=== PATIENT | male | born 1965 | race African-American/Black ===

== ENCOUNTER 2023-12-22 12:47 | Emergency (ER) | payer OTHER, SELFPAY ==
[2023-12-22 13:02] VITALS: BP 137/65; PULSE 71; RESP 16; TEMP 37; O2SAT 100
--- NOTE | 2023-12-22 13:10 | ED.UPPEXIN ---
HPI - Extremity Injury (Upper) General Chief Complaint: Extremity Injury, Upper Stated Complaint: Left Shoulder Pain Source: patient, RN notes reviewed and old records reviewed Mode of arrival: ambulatory Limitations: no limitations Related Data Home Medications Medication Instructions Recorded Confirmed amlodipine 10 mg tablet mg 12/22/23 atorvastatin 40 mg tablet mg 12/22/23 empagliflozin 10 mg tablet mg 12/22/23 (Jardiance) hydrocodone 7.5 mg-acetaminophen tablet 12/22/23 325 mg tablet ibuprofen 600 mg tablet mg 12/22/23 insulin glargine 100 unit/mL (3 unit subcut 12/22/23 mL) subcutaneous pen (Basaglar KwikPen U-100 Insulin) losartan 50 mg tablet mg 12/22/23 metformin 500 mg tablet,extended mg PO 12/22/23 release 24 hr methocarbamol 750 mg tablet mg 12/22/23 omeprazole 40 mg capsule,delayed mg 12/22/23 release potassium chloride 10 mEq meq PO 12/22/23 tablet,extended release sildenafil 100 mg tablet (Viagra) mg 12/22/23 sitagliptin phosphate 100 mg mg 12/22/23 tablet (Januvia) tamsulosin 0.4 mg capsule mg PO 12/22/23 Allergies Allergy/AdvReac Type Severity Reaction Status Date / Time No Known Allergies Allergy Verified 12/22/23 13:00 Review of Systems Review of Systems: All systems reviewed & are unremarkable except as noted in HPI and below Constitutional: Constitutional: Reports no additional constitutional complaints ENT: Reports system reviewed and no additional complaints, except as documented Cardiovascular: Cardiovascular: Reports no additional cardiovascular complaints Respiratory: Respiratory: Reports no additional respiratory complaints Gastrointestinal: Gastrointestinal: Reports no additional gastrointestinal complaints [facility] Comments At the time of my signature, I reviewed and agree with the nursing past medical, surgical, social, and family history. There is no relevant family history pertinent to the patient complaint. Exam Const: General: cooperative, no acute distress, alert and awake Orientation/consciousness: oriented to person, oriented to place and oriented to time HENMT: Head: normal to inspection Resp: Effort & Inspection: normal respiratory effort and able to speak in complete sentences Auscultation: clear to auscultation bilaterally, no crackles, no rales, no rhonchi and no wheezes Cardio: Palpation: normal PMI Rate: regular rate Rhythm: regular rhythm Heart sounds: S1 normal heart sound present and S2 normal heart sound present Neuro: General: oriented to person, oriented to place and oriented to time Cranial nerves: Yes CN's II-XII intact bilaterally Psych: Appearance: grossly normal Thought process: Normal thought process present Insight: Good insight present (Psych) Judgement: Good judgement present (Psych) Course Course Level of Care: Express Care Visit Vital Signs Vital signs: Reviewed Discharge Plan Discharge Prescriptions: No Action losartan 50 mg tablet atorvastatin 40 mg tablet potassium chloride 10 mEq tablet extended release PO omeprazole 40 mg capsule,delayed release(DR/EC) sildenafil [Viagra] 100 mg tablet methocarbamol 750 mg tablet tamsulosin 0.4 mg capsule PO amlodipine 10 mg tablet hydrocodone-acetaminophen 7.5-325 mg tablet ibuprofen 600 mg tablet metformin 500 mg tablet extended release 24 hr PO Januvia 100 mg tablet insulin glargine [Basaglar KwikPen U-100 Insulin] 100 unit/mL (3 mL) insulin pen SUBCUT Jardiance 10 mg tablet Follow-up/Referrals: PHYSICIAN,REFRIGERATOR CAR ICER [Primary Care Provider] -
== END 2023-12-22 13:23 | disposition left against medical advice (07) ==
PROVIDERS: Emergency Provider Internal Medicine Hematology & Oncology
DX: Z53.21 Procedure and treatment not carried out due to patient leaving prior to being seen by health care provider (principal)
CPT/HCPCS: 99199